=== PATIENT | female | born 1945 | race Caucasian/White ===

== ENCOUNTER → 2017-01-20 | Outpatient (CLI) | payer OTHER | LOC: CIMAGING 07:47 | PROVIDERS: ATTEND Family Medicine | DX: D25.9 Leiomyoma of uterus, unspecified (principal); R93.8 Abnormal findings on diagnostic imaging of other specified body structures | CPT/HCPCS: 76856-PO ==

== ENCOUNTER → 2018-03-02 | Outpatient (CLI) | payer OTHER | LOC: CIMAGING 17:56 | PROVIDERS: ATTEND Family Medicine | DX: M18.11 Unilateral primary osteoarthritis of first carpometacarpal joint, right hand (principal); M19.041 Primary osteoarthritis, right hand | CPT/HCPCS: 73130-PO ==

== ENCOUNTER 2018-09-30 06:23 | Day surgery (SDC) | payer OTHER ==
[2018-09-30] MEDS ORDERED: LR 1,000 ML IV ONE (07:02)
[2018-09-30] MEDS ORDERED: MIDAZOLAM 2 MG/2 ML VIAL IVP ONE (07:43)
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
[2018-09-30] MEDS ORDERED: PROPOFOL/EMULSION 500 MG/50 ML BOTTLE IV ONE (07:48)
[2018-09-30] MEDS ORDERED: fentaNYL 100 MCG/2 ML INJ ONE (07:48)
--- NOTE | 2018-09-30 07:57 | PDHPUP ---
History & Physical Update H&P update statement: This history and physical update is based on an assessment of the patient which was completed after admission or registration (within 24 hours), but prior to the surgery/procedure. H&P update: H&P reviewed & patient examined, no change in patient's condition since H&P completed
[2018-09-30] MEDS ORDERED: HYDROCODONE/APAP 5/325 TAB PO PRN (08:31)
[2018-09-30] MEDS ORDERED: LR 500 ML IV PRN (08:31)
[2018-09-30] MEDS ORDERED: HYDROmorphONE/DILAUDID 2 MG/ML INJ IVP PRN (08:31)
[2018-09-30] MEDS ORDERED: METOCLOPRAMIDE 10 MG/2 ML VIAL IVP PRN (08:31)
[2018-09-30] MEDS ORDERED: DEXAMETHASONE 4 MG/ML VIAL IVP PRN (08:31)
[2018-09-30] MEDS ORDERED: PROMETHAZINE HCL 25 MG/ML INJ IVP PRN (08:31)
[2018-09-30] MEDS ORDERED: MEPERIDINE 25 MG/0.5 ML AMP IVP PRN (08:31)
[2018-09-30] MEDS ORDERED: NALOXONE HCL 0.4 MG/ML INJ IVP PRN (08:31)
[2018-09-30] MEDS ORDERED: fentaNYL 100 MCG/2 ML INJ IVP PRN (08:31)
[2018-09-30] MEDS ORDERED: LABETALOL HCL 5 MG/ML 20 ML MDV IVP PRN (08:31)
[2018-09-30] MEDS ORDERED: ONDANSETRON 4 MG/2 ML VIAL ONE (08:32)
--- NOTE | 2018-09-30 08:54 | POSTOPPROG ---
Post Op Note Date of Operation: 09/30/18 Surgeon: Harini Nice Anesthesiologist: Dr. Bunch Anesthesia: LMA Pre-op Diagnosis: PMB, thick endometrium Post-op Diagnosis: endometrial polyp Indication: as above Procedure: H/S polypectomy Findings: anterior wall polyp Inf/Abcess present in the surg proc area at time of surgery?: No EBL: Minimal
--- NOTE | 2018-09-30 09:01 | POSTANESTH ---
Post Anesthetic Evaluation Cardiovascular Status: Normal, Stable Respiratory Status: Normal, Stable Level of Consciousness/Mental Status: Can Participate in Eval Pain Control: Adequate, Prn Tx Ordered Nausea/Vomiting Control: Adequate, Prn Tx Ordered Complications Possibly Related to Anesthesia: None Noted
[2018-09-30 10:06] VITALS: BP 149/72
--- NOTE | 2018-09-30 10:42 | GOP ---
DATE OF OPERATION: 09/30/2018 SURGEON: Harini Nice MD ANESTHESIA: General with LMA. ANESTHESIOLOGIST: Dr. Bunch PREOPERATIVE DIAGNOSIS: History of postmenopausal bleeding and thickened endometrial stripe. POSTOPERATIVE DIAGNOSIS: History of postmenopausal bleeding and thickened endometrial stripe, plus a nterior wall polyp. PROCEDURE PERFORMED: Hysteroscopic polypectomy. FINDINGS: About a 1.5 cm anterior wall polyp with normal tubal ostia. INDICATIONS: Patient is a 73-year-old who has had a history of postmenopausal bleeding. She has had an endometrial biopsy several years ago and then a D 2 years ago. She has been switched from differen t hormone regimens and is currently on Bi-Est and progesterone. She has been followed with pelvic ul trasounds for thickened endometrium and most recently her endometrial stripe was 11 mm. Recommend hys teroscopic evaluation and definitive treatment, removal of the endometrial mass. DESCRIPTION OF PROCEDURE: With informed consent signed, patient taken to the operating room, placed under general anesthesia without complication, placed in the dorsal lithotomy position, prepped and d raped in the usual sterile fashion, the bladder previously emptied. Time-out occurred. Tenaculum plac ed on the anterior lip of the cervix. Cervix dilated up to 6.5 mm and hysteroscope placed using pat l saline as a filling medium and findings as noted above. The [employer] hysteroscope rotary blade placed into the hysteroscope and resection of the polyp done completely. Hemostasis was noted. The hysteroscope removed. Net fluid deficit was 50 cc. Patient placed in supine position, awak ened in the operating room, taken to recovery room in stable condition, tolerating the procedure well . COMPLICATIONS: None. Copy requested to: /[id number]/MODL
== END 2018-09-30 10:04 | disposition home or self-care (01) ==
LOC: FSGY 06:23
PROVIDERS: ATTEND Obstetrics & Gynecology Gynecology
PROC: 0UB98ZX Excision of Uterus, Via Natural or Artificial Opening Endoscopic, Diagnostic (ICD-10-PCS; principal; 2018-09-30 08:00)
DX: N84.0 Polyp of corpus uteri (principal); N95.0 Postmenopausal bleeding; R93.89 Abnormal findings on diagnostic imaging of other specified body structures
CPT/HCPCS: 58558; C1782; J2250; J2405; J2704; J3010